=== PATIENT | female | born 1950 | race Caucasian/White ===

== ENCOUNTER 2019-04-01 16:20 | Emergency (ER) | payer OTHER ==
[~2019-04-01] VITALS: Ht 170.2 cm; Wt 81.6 kg
[2019-04-01] MEDS ORDERED: TUSNEL (17:01)
[2019-04-01] MEDS ORDERED: ALBUTEROL (17:02)
[2019-04-01] MEDS ORDERED: [UNRECOGNIZED DRUG - OTHER] (17:02)
== END 2019-04-01 20:44 | disposition home or self-care (01) ==
LOC: ER 16:20
DX: J45.998 Other asthma (principal); J22 Unspecified acute lower respiratory infection

== ENCOUNTER → 2020-07-16 | Outpatient (CLI) | payer OTHER ==
[~2020-07-16] MED LIST: ALBUTEROL; TUSNEL; [UNRECOGNIZED DRUG - OTHER]
== END | disposition home or self-care (01) ==
LOC: PPH VACUNA
PROVIDERS: ATTEND Emergency Medicine Pediatric Emergency Medicine
DX: Z23 Encounter for immunization (principal)

== ENCOUNTER → 2020-08-06 10:00 | Outpatient (CLI) | payer OTHER ==
[~2020-08-06 10:00] MED LIST changes: +LOSARTAN POTAS100 MG
== END | disposition home or self-care (01) ==
LOC: PPH VACUNA 10:00
PROVIDERS: ATTEND Emergency Medicine Pediatric Emergency Medicine
DX: Z23 Encounter for immunization (principal)

== ENCOUNTER 2020-09-10 16:21 | Emergency (ER) | payer OTHER ==
[~2020-09-10] VITALS: Ht 167.6 cm; Wt 90.7 kg
[~2020-09-10 16:21] MED LIST changes: -LOSARTAN POTAS100 MG
[2020-09-10] MEDS ORDERED: LOSARTAN POTAS100 MG (16:31)
== END 2020-09-10 19:30 | disposition home or self-care (01) ==
LOC: ER 16:21
DX: J45.998 Other asthma (principal); Z03.818 Encounter for observation for suspected exposure to other biological agents ruled out; R06.02 Shortness of breath

== ENCOUNTER 2021-01-01 15:23 | Emergency (ER) | payer OTHER ==
[~2021-01-01] VITALS: Ht 170.2 cm; Wt 81.6 kg
[~2021-01-01 15:23] MED LIST changes: +LOSARTAN POTAS100 MG
== END 2021-01-01 18:02 | disposition home or self-care (01) ==
LOC: ER 15:23
DX: K29.70 Gastritis, unspecified, without bleeding (principal); R11.2 Nausea with vomiting, unspecified; I10 Essential (primary) hypertension

== ENCOUNTER 2021-03-03 08:00 | Outpatient (CLI) | payer OTHER | END 2021-03-03 08:30 | disposition home or self-care (01) | LOC: PPH VACUNA 08:00 | DX: Z23 Encounter for immunization (principal) ==

== ENCOUNTER 2021-11-23 12:30 | Outpatient (CLI) | payer OTHER | END 2021-11-23 12:40 | disposition home or self-care (01) | LOC: PPH VACUNA 12:30 | PROVIDERS: ATTEND Emergency Medicine Pediatric Emergency Medicine | DX: Z23 Encounter for immunization (principal) ==

== ENCOUNTER 2022-02-17 10:35 | Outpatient (CLI) | payer OTHER | END 2022-02-17 10:50 | disposition home or self-care (01) | LOC: SONOGRAMA 10:35 | PROVIDERS: ATTEND Specialist | DX: E04.1 Nontoxic single thyroid nodule (principal) ==

== ENCOUNTER 2022-02-17 11:28 | Outpatient (CLI) | payer OTHER | END 2022-02-17 11:30 | disposition home or self-care (01) | LOC: NUCLEAR 11:28 | PROVIDERS: ATTEND Specialist | DX: M81.0 Age-related osteoporosis without current pathological fracture (principal) ==

== ENCOUNTER 2022-04-05 10:23 | Outpatient (CLI) | payer OTHER | END 2022-04-05 10:25 | disposition home or self-care (01) | LOC: RAD 10:23 | DX: J45.41 Moderate persistent asthma with (acute) exacerbation (principal); J20.9 Acute bronchitis, unspecified ==

== ENCOUNTER 2022-10-26 14:04 | Outpatient (CLI) | payer OTHER | END 2022-10-26 14:10 | disposition home or self-care (01) | LOC: TOM 14:04 | PROVIDERS: ATTEND Otolaryngology | DX: D49.2 Neoplasm of unspecified behavior of bone, soft tissue, and skin (principal) | CPT/HCPCS: 70492; Q9965 ==

== ENCOUNTER 2023-01-31 15:37 | Emergency (ER) | payer OTHER ==
[~2023-01-31] VITALS: Ht 170.2 cm; Wt 81.6 kg
[~2023-01-31 15:37] MED LIST changes: +CARDURA1 MG PO; +CRESTOR40 MG PO; +ELIQUIS2.5 MG PO; +LEVO-T25 MCG; +NIFEDIPINE ER30 MG PO; +PLAVIX75 MG; +SINGULAIR10 MG PO; +VENLAFAXINE HC150 M1; +WIXELA 250-501 EACH IH
[2023-01-31] MEDS ORDERED: ZITHROMAX500 MG PO (19:02)
[2023-01-31] MEDS ORDERED: XOPENEX CO1.25 MG/0. IH (19:02)
[2023-01-31] MEDS ORDERED: MEDROLPACK PO (19:02)
[2023-01-31] MEDS ORDERED: TUSNEL LIQUID178 ML PO (19:02)
== END 2023-01-31 19:59 | disposition home or self-care (01) ==
LOC: ER 15:37
DX: J45.998 Other asthma (principal); I10 Essential (primary) hypertension; Z85.9 Personal history of malignant neoplasm, unspecified
CPT/HCPCS: 36415; 71046; 94640; 96365; 99284; J2930

== ENCOUNTER 2023-03-16 10:08 | Emergency (ER) | payer OTHER ==
[~2023-03-16] VITALS: Ht 170.2 cm; Wt 76.2 kg
[~2023-03-16 10:08] MED LIST changes: +MEDROLPACK PO; +TUSNEL LIQUID178 ML PO; +XOPENEX CO1.25 MG/0. IH; +ZITHROMAX500 MG PO
[2023-03-16] MEDS ORDERED: LINZESS145 MCG PO (12:22)
== END 2023-03-16 12:48 | disposition home or self-care (01) ==
LOC: ER 10:08
DX: K59.00 Constipation, unspecified (principal); Z85.9 Personal history of malignant neoplasm, unspecified

== ENCOUNTER 2023-08-22 08:14 | Emergency (ER) | payer OTHER ==
[~2023-08-22] VITALS: Ht 170.2 cm; Wt 72.6 kg
[~2023-08-22 08:14] MED LIST changes: +LINZESS145 MCG PO
[2023-08-22] MEDS ORDERED: ENTRESTO 49 MG1 EACH PO (08:29)
[2023-08-22] MEDS ORDERED: TOPROL XL25 M1 PO (08:29)
[2023-08-22] MEDS ORDERED: FARXIGA5 MG PO (08:29)
[2023-08-22] MEDS ORDERED: LASIX20 MG PO (08:30)
[2023-08-22] MEDS ORDERED: CYMBALTA30 MG PO (08:30)
[2023-08-22] MEDS ORDERED: MONTELUKAST SODI4 M1 (08:30)
[2023-08-22] MEDS ORDERED: TRELEGY ELLIPT1 EACH IH (08:31)
[2023-08-22] MEDS ORDERED: FAMOTIDINE/PF 20 MG in 0.9 % SODIUM CHLORIDE 8 ML IV PUSH STA (08:39)
[2023-08-22] MEDS ORDERED: CEFTRIAXONE SODIUM 2,000 MG VIAL IV ONE (08:45)
[2023-08-22] MEDS ORDERED: SODIUM CHLORIDE 0.45 % 1,000 ML IV SCH (08:45)
[2023-08-22 09:53] LABS: HEMATOCRIT 35.1 % (36.0-45.00); HEMOGLOBIN 11.5 g/dL (12.0-15.00); MEAN CELL VOLUME 78.4 fL (80.00-100.00); MEAN CORPUSCULAR HEMOGLOBIN 25.7 pg (27.00-32.0); MEAN CORPUSCULAR HGB CONC 32.7 g/dl (32.0-36.0); PLATELET COUNT 254 K/uL (150-450); RED BLOOD COUNT 4.48 M/uL (4.00-6.00)
[2023-08-22 10:17] LABS: ALBUMIN 3.8 gm/dL (3.4-5.0); BILIRUBIN TOTAL 1.04 mg/dL (0.3-1.2); CALCIUM 9.9 mg/dL (8.5-10.1); CREATININE SERUM 1.71 mg/dL (0.55-1.02); GFR 29.1; GLOBULINA 4.2 G/DL (2.4-3.5); POTASSIUM 3.84 mEq/L (3.5-5.1)
[2023-08-22 10:27] LABS: URINE APPEARANCE Clear; URINE BILIRRUBIN Negative (NEGATIVE); URINE BLOOD Negative; URINE COLOR Yellow; URINE GLUCOSE Negative (NEGATIVE); URINE LEUKOCYTE Negative; URINE NITRATE Negative; URINE UROBILINOGEN 0.2 E.U./dl
[2023-08-22 10:29] LABS: URINE BACTERIA 17.6 uL (0.0-1933); URINE RBC 5.8 uL (0.0-20.8); URINE WBC 9.8 uL (0.0-23.2)
[2023-08-22 11:04] LABS: URINE PROTEIN 100 (NEGATIVE)
[2023-08-22 11:05] LABS: URINE CRYSTALS FEW /HPF
[2023-08-22] MEDS ORDERED: FLORAVANCE CAP1 EACH PO (11:36)
[2023-08-22] MEDS ORDERED: CEPHALEXIN500 MG PO (11:36)
== END 2023-08-22 11:53 | disposition home or self-care (01) ==
LOC: ER 08:14
PROVIDERS: General Practice
DX: N39.0 Urinary tract infection, site not specified (principal); I10 Essential (primary) hypertension
CPT/HCPCS: 36415; 74176; 96365; 99284; J0696; J3490 ×2

== ENCOUNTER 2023-10-01 23:43 | Emergency (ER) | payer OTHER ==
[~2023-10-01] VITALS: Ht 170.2 cm; Wt 78.0 kg
[~2023-10-01 23:43] MED LIST changes: +CEPHALEXIN500 MG PO; +CYMBALTA30 MG PO; +ENTRESTO 49 MG1 EACH PO; +FARXIGA5 MG PO; +FLORAVANCE CAP1 EACH PO; +LASIX20 MG PO; +MONTELUKAST SODI4 M1; +TOPROL XL25 M1 PO; +TRELEGY ELLIPT1 EACH IH
[2023-10-01] MEDS ORDERED: METHYLPREDNISOLONE SOD SUCC 125 MG VIAL IV ONE (23:45)
[2023-10-01] MEDS ORDERED: LEVALBUTEROL HCL 1.25 MG/3 ML SOLUTION IH SCH (23:45)
[2023-10-01] MEDS ORDERED: CEFTRIAXONE SODIUM 1,000 MG VIAL IV ONE (23:45)
[2023-10-02 01:06] LABS: HEMATOCRIT 24.6 % (36.0-45.00); MEAN CELL VOLUME 77.5 fL (80.00-100.00); MEAN CORPUSCULAR HEMOGLOBIN 25.7 pg (27.00-32.0); MEAN CORPUSCULAR HGB CONC 33.4 g/dl (32.0-36.0); PLATELET COUNT 228 K/uL (150-450); RED BLOOD COUNT 3.18 M/uL (4.00-6.00)
[2023-10-02 01:07] LABS: HEMOGLOBIN 8.2 g/dL (12.0-15.00)
[2023-10-02 01:39] LABS: PH,URINE 6.5 (5.0-8.0); URINE APPEARANCE Clear; URINE BILIRRUBIN Negative (NEGATIVE); URINE BLOOD Small; URINE COLOR Yellow; URINE GLUCOSE Negative (NEGATIVE); URINE LEUKOCYTE Negative; URINE NITRATE Negative
[2023-10-02 01:42] LABS: URINE BACTERIA 62.9 uL (0.0-1933); URINE EPITHELIAL CELLS 12.9 uL (0.0-38.8); URINE RBC 51.4 uL (0.0-20.8); URINE WBC 7.5 uL (0.0-23.2)
[2023-10-02 01:44] LABS: URINE PROTEIN 100 (NEGATIVE)
[2023-10-02 02:26] LABS: ALBUMIN 3.9 gm/dL (3.4-5.0); BILIRUBIN TOTAL 0.76 mg/dL (0.3-1.2); CALCIUM 9.7 mg/dL (8.5-10.1); CREATININE SERUM 1.53 mg/dL (0.55-1.02); GFR 33.09; GLOBULINA 4.3 G/DL (2.4-3.5); POTASSIUM 3.87 mEq/L (3.5-5.1); TOTAL PROTEIN 8.2 gm/dL (6.4-8.2)
== END 2023-10-02 08:16 | disposition home or self-care (01) ==
LOC: ER 23:43
PROVIDERS: General Practice
DX: J18.9 Pneumonia, unspecified organism (principal); D64.9 Anemia, unspecified; I10 Essential (primary) hypertension; I51.7 Cardiomegaly; Z20.822 Contact with and (suspected) exposure to COVID-19; Z85.9 Personal history of malignant neoplasm, unspecified
CPT/HCPCS: 36415; 71046; 71250; 82803; 94640; 96365; 99284; J0696; J2930

== ENCOUNTER 2024-06-14 15:50 | Emergency (ER) | payer OTHER ==
[~2024-06-14] VITALS: Ht 170.2 cm; Wt 72.6 kg
[~2024-06-14 15:50] MED LIST changes: +ABANEU-SL TABL1 EACH SL; +ELIQUIS5 MG PO; +FUSION PLUS CA1 EACH PO; +MONTELUKAST SOD10 MG PO; +PLAVIX75 MG PO; +POM (MEDICAMENTO EN PO; +TRAM1TAB98 PO
[2024-06-14] MEDS ORDERED: TRIAMCINOLONE ACETONIDE 40 MG/ML VIAL IM ONE (16:15)
[2024-06-14] MEDS ORDERED: DUI500 PO (16:48)
== END 2024-06-14 17:42 | disposition home or self-care (01) ==
LOC: ER 15:50
DX: S69.82XA Other specified injuries of left wrist, hand and finger(s), initial encounter (principal); X58.XXXA Exposure to other specified factors, initial encounter; Y93.89 Activity, other specified; Y92.89 Other specified places as the place of occurrence of the external cause; Y99.8 Other external cause status; I10 Essential (primary) hypertension
CPT/HCPCS: 73130; 73140; 96372; 99283; J3301

== ENCOUNTER 2024-06-25 15:41 | Emergency (ER) | payer OTHER ==
[~2024-06-25] VITALS: Ht 162.6 cm; Wt 59.0 kg
[~2024-06-25 15:41] MED LIST changes: +DUI500 PO
[2024-06-25] MEDS ORDERED: LEVALBUTEROL HCL 1.25 MG/3 ML SOLUTION IH SCH (16:00)
[2024-06-25] MEDS ORDERED: METHYLPREDNISOLONE SOD SUCC 125 MG VIAL IV ONE (16:00)
[2024-06-25 16:39] LABS: HEMOGLOBIN 11.8 g/dL (12.0-15.00); MEAN CELL VOLUME 75.8 fL (80.00-100.00); MEAN CORPUSCULAR HEMOGLOBIN 25.6 pg (27.00-32.0); MEAN CORPUSCULAR HGB CONC 33.8 g/dl (32.0-36.0); PLATELET COUNT 201 K/uL (150-450); RED BLOOD COUNT 4.61 M/uL (4.00-6.00); RED CELL DISTRIBUTION WIDTH 17.4 % (11.5-14.5)
[2024-06-25 16:59] LABS: BILIRUBIN TOTAL 0.38 mg/dL (0.3-1.2); CALCIUM 8.8 mg/dL (8.5-10.1); CREATININE SERUM 1.34 mg/dL (0.55-1.02); GFR 38.45; GLOBULINA 3.3 G/DL (2.4-3.5); POTASSIUM 4.81 mEq/L (3.5-5.1); TOTAL PROTEIN 7.3 gm/dL (6.4-8.2)
[2024-06-25 17:17] LABS: PH,URINE 5.5 (5.0-8.0); URINE APPEARANCE Clear; URINE BILIRRUBIN Negative (NEGATIVE); URINE BLOOD Negative; URINE COLOR Yellow; URINE KETONE Trace (NEGATIVE); URINE LEUKOCYTE Negative; URINE NITRATE Negative
[2024-06-25 17:18] LABS: URINE BACTERIA 37.9 uL (0.0-1933); URINE CAST 3.97 uL (0.0-1.40); URINE EPITHELIAL CELLS 6.3 uL (0.0-38.8); URINE RBC 14.7 uL (0.0-20.8); URINE WBC 4.1 uL (0.0-23.2)
[2024-06-25 17:28] LABS: URINE GLUCOSE 250 MG/DL (NEGATIVE); URINE PROTEIN 100 (NEGATIVE)
== END 2024-06-25 20:10 | disposition home or self-care (01) ==
LOC: ER 15:41
PROVIDERS: General Practice
DX: R06.89 Other abnormalities of breathing (principal); Z86.19 Personal history of other infectious and parasitic diseases; I50.9 Heart failure, unspecified; I25.10 Atherosclerotic heart disease of native coronary artery without angina pectoris; Z85.89 Personal history of malignant neoplasm of other organs and systems; G35 Multiple sclerosis; I11.9 Hypertensive heart disease without heart failure; Z20.822 Contact with and (suspected) exposure to COVID-19
CPT/HCPCS: 36415; 71250; 94640; 96365; 99284; J3490

== ENCOUNTER 2024-10-22 15:45 | Emergency (ER) | payer OTHER ==
[~2024-10-22] VITALS: Ht 170.2 cm; Wt 74.8 kg
[2024-10-22 17:25] LABS: MEAN CELL VOLUME 83.2 fL (80.00-100.00); MEAN CORPUSCULAR HEMOGLOBIN 27.8 pg (27.00-32.0); MEAN CORPUSCULAR HGB CONC 33.4 g/dl (32.0-36.0); PLATELET COUNT 178 K/uL (150-450); RED BLOOD COUNT 4.69 M/uL (4.00-6.00); RED CELL DISTRIBUTION WIDTH 15.5 % (11.5-14.5)
[2024-10-22 17:33] LABS: INFLUENZA A AG NEGATIVE (NEGATIVE)
[2024-10-22 17:45] LABS: ALBUMIN 3.9 gm/dL (3.4-5.0); BILIRUBIN TOTAL 0.63 mg/dL (0.3-1.2); CALCIUM 9.6 mg/dL (8.5-10.1); CREATININE SERUM 1.18 mg/dL (0.55-1.02); GFR 44.53; GLOBULINA 4.2 G/DL (2.4-3.5); POTASSIUM 4.28 mEq/L (3.5-5.1); TOTAL PROTEIN 8.1 gm/dL (6.4-8.2)
[2024-10-22 18:55] LABS: COVID-19 AG NEGATIVE (NEGATIVE)
== END 2024-10-22 19:19 | disposition home or self-care (01) ==
LOC: ER 15:45
PROVIDERS: General Practice
DX: I11.0 Hypertensive heart disease with heart failure (principal); I50.9 Heart failure, unspecified; I25.10 Atherosclerotic heart disease of native coronary artery without angina pectoris; I48.91 Unspecified atrial fibrillation; G35 Multiple sclerosis; J45.909 Unspecified asthma, uncomplicated; Z85.89 Personal history of malignant neoplasm of other organs and systems; Z20.822 Contact with and (suspected) exposure to COVID-19

== ENCOUNTER 2025-01-21 14:26 | Emergency (ER) | payer OTHER ==
[~2025-01-21] VITALS: Ht 165.1 cm; Wt 72.6 kg
[2025-01-21] MEDS ORDERED: SODIUM CHLORIDE 0.45 % 1,000 ML IV SCH (14:45)
[2025-01-21 15:41] LABS: BASO % 0.7 % (0.1-1.2); EOS # 0.08 (0.04-0.54); EOS % 0.8 % (0.7-7.0); LYMPH # 1.26 (1.18-3.74); LYMPH % 13.2 % (19.3-53.1); MEAN PLATELET VOLUME 10.50 fl (9.4-12.4); MONO # 0.68 (0.24-0.82); MONO % 7.1 % (4.7-12.5); NEUT # 7.42 (1.56-6.13); NEUT % 77.9 % (34.0-71.1); RED CELL DISTRIBUTION WIDTH 15.2 % (11.6-14.4)
[2025-01-21 16:02] LABS: INR 1.03
[2025-01-21 16:08] LABS: ALT/SGPT 19.0 U/L (12-78); AST/SGOT 16.0 U/L (15-37); BILIRUBIN TOTAL 0.41 mg/dL (0.3-1.2); BUN CREA RATIO 19.0 (7.0-25.0); CREATININE SERUM 1.43 mg/dL (0.55-1.02); GFR 35.68; GLOBULINA 4.1 G/DL (2.4-3.5); GLUCOSE FASTING 123.0 mg/dL (65-100); OSMOLALITY SERUM 284.0 MOSM/KG (275-295)
[2025-01-21] MEDS ORDERED: BUTALBIT-ACETA1 EACH PO (21:30)
[2025-01-21] MEDS ORDERED: BUTALB/ACETAMINOPHEN/CAFFEINE 1 TAB TABLET PO ONE ×2 (21:32→21:45)
== END 2025-01-21 22:22 | disposition home or self-care (01) ==
LOC: ER 14:26
PROVIDERS: General Practice
DX: I66.8 Occlusion and stenosis of other cerebral arteries (principal); I10 Essential (primary) hypertension; Z96.89 Presence of other specified functional implants; Z85.89 Personal history of malignant neoplasm of other organs and systems; Z87.09 Personal history of other diseases of the respiratory system

== ENCOUNTER 2025-06-05 09:55 | Outpatient (CLI) | payer OTHER ==
[~2025-06-05 09:55] MED LIST changes: +BUTALBIT-ACETA1 EACH PO
== END 2025-06-05 09:56 | disposition home or self-care (01) ==
LOC: NUCLEAR 09:55
DX: I82.403 Acute embolism and thrombosis of unspecified deep veins of lower extremity, bilateral (principal); M79.606 Pain in leg, unspecified; I87.2 Venous insufficiency (chronic) (peripheral)